=== PATIENT | male | born 1975 | race Caucasian/White ===

== ENCOUNTER 2023-05-25 04:21 | Day surgery (SDC) | payer BC ==
[2023-05-24 10:54] VITALS: BMI 30.5
[2023-05-25 08:57] VITALS: TEMP 97
[2023-05-25 09:17] VITALS: RESP 18
[2023-05-25 09:23] VITALS: BP 121/65; PULSE 58
== END 2023-05-25 09:35 | disposition home or self-care (01) ==
LOC: JASU-ENDO 04:21
PROVIDERS: ATTEND Internal Medicine Gastroenterology
PROC: 0DB78ZX Excision of Stomach, Pylorus, Via Natural or Artificial Opening Endoscopic, Diagnostic (ICD-10-PCS; 2023-05-25)
PROC: 0DB68ZX Excision of Stomach, Via Natural or Artificial Opening Endoscopic, Diagnostic (ICD-10-PCS; 2023-05-25)
PROC: 0DB98ZX Excision of Duodenum, Via Natural or Artificial Opening Endoscopic, Diagnostic (ICD-10-PCS; principal; 2023-05-25 08:45)
DX: K29.50 Unspecified chronic gastritis without bleeding (principal)
CPT/HCPCS: 88305-TC; 88342-TC

== ENCOUNTER 2023-06-15 04:30 | Day surgery (SDC) | payer BC ==
[2023-06-09 11:39] VITALS: BMI 30.7
[2023-06-15 09:39] VITALS: TEMP 98
[2023-06-15 09:44] VITALS: BP 119/61; PULSE 55; RESP 18
== END 2023-06-15 10:00 | disposition home or self-care (01) ==
LOC: JASU-ENDO 04:30
PROVIDERS: ATTEND Internal Medicine Gastroenterology
PROC: 0DBN8ZX Excision of Sigmoid Colon, Via Natural or Artificial Opening Endoscopic, Diagnostic (ICD-10-PCS; 2023-06-15)
PROC: 0DBQ8ZX Excision of Anus, Via Natural or Artificial Opening Endoscopic, Diagnostic (ICD-10-PCS; principal; 2023-06-15 08:00)
DX: Z12.11 Encounter for screening for malignant neoplasm of colon (principal); D12.8 Benign neoplasm of rectum; D12.5 Benign neoplasm of sigmoid colon; K64.8 Other hemorrhoids; A63.0 Anogenital (venereal) warts
CPT/HCPCS: 88305-TC; 88341-TC; 88342-TC